=== PATIENT | male | born 1985 | race Hispanic/Latino ===

== ENCOUNTER 2018-11-06 19:00 | Emergency (ER) | payer SELFPAY ==
[2018-11-06] MEDS ORDERED: Lidocaine 1% Inj (20ml) IJ STA (19:58)
[2018-11-06] MEDS ORDERED: Morphine 4 MG/ML VIAL IVP ONE (19:58)
[2018-11-06] MEDS ORDERED: Lidocaine 1% Inj (20ml) ONE (20:02)
[2018-11-06 20:16] LABS: BASO % 0.4 % (0.0-2.0); EOS # 0.5 K/uL (0.0-0.7); EOS % 4.7 % (0.0-4.0); HEMOGLOBIN 16.5 g/dL (12.0-18.0); LYMPH # 3.6 K/uL (1.0-4.3); LYMPH % 35.6 % (20.0-40.0); MEAN CELL VOLUME 94.8 fl (80.0-94.0); MEAN CORPUSCULAR HEMOGLOBIN 32.5 pg (27.0-31.0); MEAN CORPUSCULAR HGB CONC 34.2 g/dL (33.0-37.0); MEAN PLATELET VOLUME 8.7 fl (7.2-11.7); MONO # 0.9 K/uL (0.0-0.8); MONO % 8.7 % (0.0-10.0); NEUT # 5.1 K/uL (1.8-7.0); NEUT % 50.6 % (50.0-75.0); NRBC % 0.1 % (0.0-0.0); RBC 5.09 Mil/uL (4.40-5.90); RED CELL DISTRIBUTION WIDTH 13.6 % (11.5-14.5)
[2018-11-06 20:34] LABS: BLOOD UREA NITROGEN 17 mg/dl (9-20); GFR NON-AFRICAN AMERICAN > 60
[2018-11-06] MEDS ORDERED: Bupivacaine 0.5% 50 ML IJ ONE (20:43)
--- NOTE | 2018-11-06 21:19 | ED PDOC ---
Upper Extremity Pain/Injury Time Seen by Provider: 11/06/18 19:50 Chief Complaint (Nursing): Finger,Hand,&Wrist Chief Complaint (Provider): Finger,Hand,&Wrist History Per: Patient History/Exam Limitations: no limitations Current Symptoms Are (Timing): Still Present Quality: "Pain" Additional Complaint(s): 32 year old male presents to the ED with an injury to the left first digit. 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 While slicing limes, he accidentally sliced off the tip of his left thumb. Patient states the bleeding was severe. In an attempt to stop it, he stuck his thumb in salt, wrapped it in paper towels, duct tape and a rubber band. Patient reports the blood was "squirting" out of his thumb and he feels as though he lost a lot of blood. PMD: Merrick Herrmann Past Medical History Reviewed: Historical Data, Nursing Documentation, Vital Signs Vital Signs: Last Vital Signs Temp 98.0 F 11/06/18 19:15 Pulse 85 11/06/18 19:15 Resp 16 11/06/18 19:15 BP 154/101 H 11/06/18 19:15 Pulse Ox 100 11/06/18 19:15 Primary Care Provider: Merrick Herrmann - Medical History PMH: Anxiety, Depression Denies: HIV, HTN, Seizures, Sexually Transmitted Disease - Surgical History Surgical History: No Surg Hx - Family History Family History: States: Unknown Family Hx - Immunization History Hx Tetanus Toxoid Vaccination: No Hx Influenza Vaccination: No Hx Pneumococcal Vaccination: No - Home Medications Home Medications: Ambulatory Orders Medication Instructions Recorded Azithromycin 250 mg PO DAILY #6 tab 06/11/18 Benzonatate [Tessalon Perles] 200 mg PO TID PRN #15 sgl 06/11/18 Ibuprofen [Motrin] 600 mg PO Q6 #30 tab 06/11/18 Cephalexin [Keflex] 500 mg PO Q6 #40 capsule 11/06/18 Oxycodone HCl/Acetaminophen 1 each PO Q6 #12 tablet 11/06/18 [Percocet 10-325 mg Tablet] - Allergies Allergies/Adverse Reactions: Allergies Allergy/AdvReac Type Severity Reaction Status Date / Time guaifenesin [From Robitussin] Allergy RASH Verified 11/06/18 19:14 shellfish derived Allergy RASH Verified 11/06/18 19:14 Review of Systems ROS Statement: Except As Marked, All Systems Reviewed And Found Negative Musculoskeletal: Positive for: Hand Pain (tip of left thumb was sliced off) Physical Exam - Reviewed Nursing Documentation Reviewed: Yes Vital Signs Reviewed: Yes - Physical Exam Appears: Positive for: Uncomfortable Head Exam: Positive for: ATRAUMATIC, NORMOCEPHALIC Skin: Positive for: Normal Color, Warm, Dry Eye Exam: Positive for: EOMI, Normal appearance, PERRL Extremity: Positive for: Normal ROM (full ROM at DIP of left first digit), Other (distal tip of finger exposed; no visible bone. 2 visible pulsatile sources of bleeding. ) - Laboratory Results Result Diagrams: 11/07/18 02:11 11/07/18 02:11 - ECG O2 Sat by Pulse Oximetry: 100 (RA) Pulse Ox Interpretation: Normal Medical Decision Making Medical Decision Makin:50 MDM: avulsion of the distal left thumb Patient to be seen by Dr. Buchanan for the tip of his left thumb to be replaced. Finger redressed with xerofrom and gauze. 21:32 Skin graft placed and closed by Dr. Buchanan and surgical residents. 22:08 Patient was to be discharged. However, patient's called stating that he has been expressing the desire to kill himself all day. When asked about psychiatric issues, he states that he would like to kill himself. Crisis evaluated and 1:1 observation orders placed. Scribe Attestation: Documented by Isidra Aragon, acting as a scribe for Erika Malcolm MD. Provider Scribe Attestation: All medical record entries made by the Scribe were at my direction and personally dictated by me. I have reviewed the chart and agree that the record accurately reflects my personal performance of the history, physical exam, medical decision making, and the department course for this patient. I have also personally directed, reviewed, and agree with the discharge instructions and disposition. Disposition - Clinical Impression Clinical Impression: Laceration of thumb, Depression with suicidal ideation - Patient ED Disposition Is Patient to be Admitted: No - Disposition Disposition: Transfer of Care Disposition Time: 23:00 (pending crisis evaluation) Condition: STABLE Prescriptions: Cephalexin [Keflex] 500 mg PO Q6 #40 capsule Oxycodone HCl/Acetaminophen [Percocet 10-325 mg Tablet] 1 each PO Q6 #12 tablet Forms: [employer] (Bruneian) Print Language: PERUVIAN
--- NOTE | 2018-11-06 23:31 | ED PDOC ---
- Laboratory Results Result Diagrams: 11/07/18 02:11 11/07/18 02:11 - ECG O2 Sat by Pulse Oximetry: 100 (RA) Pulse Ox Interpretation: Normal Medical Decision Making Medical Decision Makin Patient endorsed by Dr. Malcolm, pending crisis evaluation and 1:1 Observation. 0108 Pending [facility] [place]. 0700 Patient resting comfortably in ER. Patient signed out to Dr. Thomas, pending [facility] [place]. Scribe Attestation: Documented by Shanika Trammell acting as a scribe for Miguel Grayson MD. Provider Scribe Attestation: All medical record entries made by the Scribe were at my direction and personally dictated by me. I have reviewed the chart and agree that the record accurately reflects my personal performance of the history, physical exam, medical decision making, and the department course for this patient. I have also personally directed, reviewed, and agree with the discharge instructions and disposition. Disposition - Clinical Impression Clinical Impression: Laceration of thumb - Disposition Referrals: Marciano Buchanan MD [Medical Doctor] - Condition: STABLE Prescriptions: Cephalexin [Keflex] 500 mg PO Q6 #40 capsule Oxycodone HCl/Acetaminophen [Percocet 10-325 mg Tablet] 1 each PO Q6 #12 tablet Forms: [employer] (Korean), [facility] ED School/Work Excuse Print Language: MALAY
[2018-11-07 02:23] LABS: BASO % 0.5 % (0.0-2.0); EOS # 0.4 K/uL (0.0-0.7); EOS % 3.5 % (0.0-4.0); HEMOGLOBIN 15.5 g/dL (12.0-18.0); LYMPH # 3.8 K/uL (1.0-4.3); MEAN CELL VOLUME 95.1 fl (80.0-94.0); MEAN CORPUSCULAR HEMOGLOBIN 32.7 pg (27.0-31.0); MEAN CORPUSCULAR HGB CONC 34.4 g/dL (33.0-37.0); MEAN PLATELET VOLUME 8.6 fl (7.2-11.7); MONO # 0.9 K/uL (0.0-0.8); MONO % 8.9 % (0.0-10.0); NEUT # 5.4 K/uL (1.8-7.0); NEUT % 51.1 % (50.0-75.0); RBC 4.75 Mil/uL (4.40-5.90); RED CELL DISTRIBUTION WIDTH 13.7 % (11.5-14.5); WHITE BLOOD COUNT 10.5 K/uL (4.8-10.8)
[2018-11-07 02:33] LABS: ACETAMINOPHEN < 10.0 ug/ml (10.0-30.0); SALICYLATE < 1.0 mg/dl
[2018-11-07 02:35] LABS: BLOOD UREA NITROGEN 16 mg/dl (9-20); CALCIUM 9.4 mg/dL (8.4-10.2); GFR NON-AFRICAN AMERICAN > 60
[2018-11-07] MEDS ORDERED: Oxycodone/Acetaminophen 5/325 mg Tab PO ONE ×2 (03:37→08:03)
[2018-11-07] MEDS ORDERED: Oxycodone/Acetaminophen 5/325 mg Tab ONE ×2 (03:41→08:07)
[2018-11-07 06:48] LABS: URINE BILIRUBIN NEGATIVE (NEGATIVE); URINE BLOOD NEGATIVE (NEGATIVE); URINE CLARITY CLEAR (Clear); URINE COLOR YELLOW (YELLOW); URINE GLUCOSE (UA) NEG (NEGATIVE); URINE LEUKOCYTE ESTERASE NEG Leu/uL (Negative); URINE PROTEIN NEGATIVE (NEGATIVE); URINE UROBILINOGEN 0.2-1.0 mg/dL (0.2-1.0)
[2018-11-07 07:07] LABS: BARBITURATES, UR NEGATIVE (NEGATIVE); BENZODIAZEPINES, UR NEGATIVE (NEGATIVE); OPIATES, UR POSITIVE (NEGATIVE); PHENCYCLIDINE, UR NEGATIVE (NEGATIVE)
--- NOTE | 2018-11-07 07:22 | ED PDOC ---
- Laboratory Results Result Diagrams: 11/07/18 02:11 11/07/18 02:11 Lab Results: Urine Color Yellow (YELLOW) 11/07/18 06:33 Urine Clarity Clear (Clear) 11/07/18 06:33 Urine pH 5.0 (5.0-8.0) 11/07/18 06:33 Ur Specific [place] 1.027 (1.003-1.030) 11/07/18 06:33 Urine Protein Negative mg/dL (NEGATIVE) 11/07/18 06:33 Urine Glucose (UA) Neg mg/dL (NEGATIVE) 11/07/18 06:33 Urine Ketones Trace mg/dL (NEGATIVE) 11/07/18 06:33 Urine Blood Negative (NEGATIVE) 11/07/18 06:33 Urine Nitrate Negative (NEGATIVE) 11/07/18 06:33 Urine Bilirubin Negative (NEGATIVE) 11/07/18 06:33 Urine Urobilinogen 0.2-1.0 mg/dL (0.2-1.0) 11/07/18 06:33 Ur Leukocyte Esterase Neg Saeid/uL (Negative) 11/07/18 06:33 Urine RBC (Auto) 3 /hpf (0-3) 11/07/18 06:33 Urine Microscopic WBC 2 /hpf (0-5) 11/07/18 06:33 - ECG O2 Sat by Pulse Oximetry: 99 (RA) Pulse Ox Interpretation: Normal - Progress ED Course And Treament: 1441: Stable. Pending [facility] bed. Has been accepted. Dr. Singh to take over care. Pt. vitals maintained. Pt. with finger lac. To be put on antibiotics and laceration fu with Dr. Buchanan. Medical Decision Making Medical Decision Making: Time: 0700 -- Patient endorsed to me by Dr. Grayson, pending [facility] evaluation. Scribe Attestation: Documented by Danielito Tirado, acting as a scrshadi Thomas MD. Provider Scribe Attestation: All medical record entries made by the Scribe were at my direction and pe rsonally dictated by me. I have reviewed the chart and agree that the record accurately reflects my personal performance of the history, physical exam, medical decision making, and the department course for this patient. I have also personally directed, reviewed, and agree with the discharge instructions and disposition. Disposition - Clinical Impression Clinical Impression: Laceration of thumb, Depression with suicidal ideation - POA Present On Arrival: Falls Or Trauma - Disposition Disposition: Transfer of Care Disposition Time: 14:45 Condition: STABLE Prescriptions: Cephalexin [Keflex] 500 mg PO Q6 #40 capsule Oxycodone HCl/Acetaminophen [Percocet 10-325 mg Tablet] 1 each PO Q6 #12 tablet Print Language: SWEDISH
--- NOTE | 2018-11-07 10:51 | CP.PCM.CON ---
History of Present Illness - History of Present Illness History of Present Illness: Psychiatry consult note CC: Depression HPI: 32 yo male w/ h/o depression and prior psychiatric admission, admitted s/p accidentally cutting his finger, with reports of worsening depression. Collateral history obtained from patient's , stated that the patient has been expressing suicidal ideation. Patient is now denying suicidal ideation and does not want inpatient psychiatric admission. A + O x 4. Denies AH/VH/HI/paranoia. From ER note: CW (MIKE) spoke to pt's ex-, Alize Saldaña- [phone] via phone as pt had contacted the ED stating that she had concerns about pt's safety. As CW gathered more information regarding pt, pt's ex- reported pt has been expressing the desire to kill himself all day long. She reported that pt called him telling her that he was by the bridge 2 or 3 days ago stating that he was going to take his life; she then reported that she convinced him to not end his life, as his children need him. Mrs. Saldaña stated that despite their "marital issues;" she still wants pt to be safe and get professional help so that he can cope with his life stressors in a healthier way. Pt's ex- stated that she is aware that pt has had 1 suicidal attempt back in 2013, where as he was admitted for an "overdose." Mrs. Saldaña believes that pt would benefit from being admitted psychiatrically. 23:05- CW (MIKE) also spoke to pt's mother (Mrs. Lara Berrios)- [phone], whom reported that she has concerns about her son's mental health as he has a history of depression and he does not seem to be handling his divorce very well. Pt's mother also stated that she believes pt should be admitted to improve his mood and ensure his safety. Impression: 32 yo male w/ worsening depression and recent suicidal threats. -Screen for involuntary psychiatric admission Past Patient History - Infectious Disease Hx of Infectious Diseases: None - Past Social History Smoking Status: Heavy Smoker > 10 Cigarettes Daily - CARDIAC Hx Cardiac Disorders: No Hx Hypertension: No - PULMONARY Hx Tuberculosis: No - NEUROLOGICAL HX Cerebrovascular Accident: No Hx Seizures: No - HEMATOLOGICAL/ONCOLOGICAL Hx Cancer: No Hx Human Immunodeficiency Virus (HIV): No - MUSCULOSKELETAL/RHEUMATOLOGICAL Hx Falls: No - GENITOURINARY/GYNECOLOGICAL Hx Sexually Transmitted Disorders: No - PSYCHIATRIC Hx Anxiety: Yes Hx Depression: Yes - ANESTHESIA Hx Anesthesia: Yes Meds Home Medications: Home Medication List Medication Instructions Recorded Confirmed Type Cephalexin [Keflex] 500 mg PO Q6 #40 capsule 11/06/18 Rx Oxycodone HCl/Acetaminophen 1 each PO Q6 #12 tablet 11/06/18 Rx [Percocet 10-325 mg Tablet] Allergies/Adverse Reactions: Allergies Allergy/AdvReac Type Severity Reaction Status Date / Time guaifenesin [From Robitussin] Allergy RASH Verified 11/06/18 19:14 shellfish derived Allergy RASH Verified 11/06/18 19:14 Results - Vital Signs Recent Vital Signs: Last Vital Signs Temp 98.0 F 11/07/18 07:16 Pulse 52 L 11/07/18 07:16 Resp 18 11/07/18 07:16 BP 113/73 11/07/18 07:16 Pulse Ox 99 11/07/18 07:22 - Labs Result Diagrams: 11/07/18 02:11 11/07/18 02:11 Labs: Laboratory Results - last 24 hr 11/06/18 11/06/18 11/07/18 20:05 20:05 02:11 WBC 10.0 RBC 5.09 Hgb 16.5 Hct 48.3 MCV 94.8 H MCH 32.5 H MCHC 34.2 RDW 13.6 Plt Count 316 MPV 8.7 Neut % (Auto) 50.6 Lymph % (Auto) 35.6 [place] % (Auto) 8.7 Eos % (Auto) 4.7 H Baso % (Auto) 0.4 Neut # (Auto) 5.1 Lymph # (Auto) 3.6 [place] # (Auto) 0.9 H Eos # (Auto) 0.5 Baso # (Auto) 0.0 Sodium 137 Potassium 3.8 Chloride 100 Carbon Dioxide 27 Anion Gap 14 BUN 17 Creatinine 0.8 Est GFR ( Amer) > 60 Est GFR (Non-Af Amer) > 60 Random Glucose 90 Calcium 10.0 Urine Color Urine Clarity Urine pH Ur Specific [place] Urine Protein Urine Glucose (UA) Urine Ketones Urine Blood Urine Nitrate Urine Bilirubin Urine Urobilinogen Ur Leukocyte Esterase Urine RBC (Auto) Urine Microscopic WBC Salicylates < 1.0 Urine Opiates Screen Urine Methadone Screen Acetaminophen < 10.0 L Ur Barbiturates Screen Ur Phencyclidine Scrn Ur Amphetamines Screen U Benzodiazepines Scrn U Oth Cocaine Metabols U Cannabinoids Screen Alcohol, Quantitative 11/07/18 11/07/18 11/07/18 02:11 02:11 06:33 WBC 10.5 RBC 4.75 Hgb 15.5 Hct 45.2 MCV 95.1 H MCH 32.7 H MCHC 34.4 RDW 13.7 Plt Count 263 MPV 8.6 Neut % (Auto) 51.1 Lymph % (Auto) 36.0 [place] % (Auto) 8.9 Eos % (Auto) 3.5 Baso % (Auto) 0.5 Neut # (Auto) 5.4 Lymph # (Auto) 3.8 [place] # (Auto) 0.9 H Eos # (Auto) 0.4 Baso # (Auto) 0.0 Sodium 137 Potassium 4.1 Chloride 102 Carbon Dioxide 25 Anion Gap 14 BUN 16 Creatinine 0.8 Est GFR ( Amer) > 60 Est GFR (Non-Af Amer) > 60 Random Glucose 92 Calcium 9.4 Urine Color Urine Clarity Urine pH Ur Specific [place] Urine Protein Urine Glucose (UA) Urine Ketones Urine Blood Urine Nitrate Urine Bilirubin Urine Urobilinogen Ur Leukocyte Esterase Urine RBC (Auto) Urine Microscopic WBC Salicylates Urine Opiates Screen Positive H Urine Methadone Screen Negative Acetaminophen Ur Barbiturates Screen Negative Ur Phencyclidine Scrn Negative Ur Amphetamines Screen Negative U Benzodiazepines Scrn Negative U Oth Cocaine Metabols Positive H U Cannabinoids Screen Positive H Alcohol, Quantitative < 10 11/07/18 06:33 WBC RBC Hgb Hct MCV MCH MCHC RDW Plt Count MPV Neut % (Auto) Lymph % (Auto) [place] % (Auto) Eos % (Auto) Baso % (Auto) Neut # (Auto) Lymph # (Auto) [place] # (Auto) Eos # (Auto) Baso # (Auto) Sodium Potassium Chloride Carbon Dioxide Anion Gap BUN Creatinine Est GFR ( Amer) Est GFR (Non-Af Amer) Random Glucose Calcium Urine Color Yellow Urine Clarity Clear Urine pH 5.0 Ur Specific [place] 1.027 Urine Protein Negative Urine Glucose (UA) Neg Urine Ketones Trace Urine Blood Negative Urine Nitrate Negative Urine Bilirubin Negative Urine Urobilinogen 0.2-1.0 Ur Leukocyte Esterase Neg Urine RBC (Auto) 3 Urine Microscopic WBC 2 Salicylates Urine Opiates Screen Urine Methadone Screen Acetaminophen Ur Barbiturates Screen Ur Phencyclidine Scrn Ur Amphetamines Screen U Benzodiazepines Scrn U Oth Cocaine Metabols U Cannabinoids Screen Alcohol, Quantitative
--- NOTE | 2018-11-07 10:59 | RAD ---
Date of service: 11/07/2018 HISTORY: med clearance COMPARISON: 06/07/2010 TECHNIQUE: Chest PA and lateral views. Two views. FINDINGS: LUNGS: No active pulmonary disease. PLEURA: No significant pleural effusion identified. No pneumothorax apparent. CARDIOVASCULAR: No aortic atherosclerotic calcification present. Normal cardiac size. No pulmonary vascular congestion. OSSEOUS STRUCTURES: No significant abnormalities. VISUALIZED UPPER ABDOMEN: Normal. OTHER FINDINGS: None. IMPRESSION: No active disease.
--- NOTE | 2018-11-07 15:01 | ED PDOC ---
- Laboratory Results Result Diagrams: 11/07/18 02:11 11/07/18 02:11 Lab Results: Urine Color Yellow (YELLOW) 11/07/18 06:33 Urine Clarity Clear (Clear) 11/07/18 06:33 Urine pH 5.0 (5.0-8.0) 11/07/18 06:33 Ur Specific [place] 1.027 (1.003-1.030) 11/07/18 06:33 Urine Protein Negative mg/dL (NEGATIVE) 11/07/18 06:33 Urine Glucose (UA) Neg mg/dL (NEGATIVE) 11/07/18 06:33 Urine Ketones Trace mg/dL (NEGATIVE) 11/07/18 06:33 Urine Blood Negative (NEGATIVE) 11/07/18 06:33 Urine Nitrate Negative (NEGATIVE) 11/07/18 06:33 Urine Bilirubin Negative (NEGATIVE) 11/07/18 06:33 Urine Urobilinogen 0.2-1.0 mg/dL (0.2-1.0) 11/07/18 06:33 Ur Leukocyte Esterase Neg Saeid/uL (Negative) 11/07/18 06:33 Urine RBC (Auto) 3 /hpf (0-3) 11/07/18 06:33 Urine Microscopic WBC 2 /hpf (0-5) 11/07/18 06:33 - ECG O2 Sat by Pulse Oximetry: 99 (RA) Pulse Ox Interpretation: Normal Medical Decision Making Medical Decision Making: Time: 1500 -- Patient endorsed to me by Dr. Thomas, pending [facility] bed availability. Time: 1534 -- On re-evaluation, patient is complaining of finger pain. Motrin ordered. Time: 1900 -- Pt stable. Time: 2300 -- Pt stable. time: [address] Grayson. Pending [facility] bed. Stable at this time. Scribe Attestation: Documented by Danielito Tirado, acting as a scribe forMelissa Singh, MD. Provider Scribe Attestation: All medical record entries made by the Scribe were at my direction and personally dictated by me. I have reviewed the chart and agree that the record accurately reflects my personal performance of the history, physical exam, medical decision making, and the department course for this patient. I have also personally directed, reviewed, and agree with the discharge instructions and disposition. Disposition - Clinical Impression Clinical Impression: Laceration of thumb, Depression with suicidal ideation - POA Present On Arrival: None - Disposition Disposition: Transfer of Care Disposition Time: 00:00 Condition: STABLE Prescriptions: Cephalexin [Keflex] 500 mg PO Q6 #40 capsule Oxycodone HCl/Acetaminophen [Percocet 10-325 mg Tablet] 1 each PO Q6 #12 tablet Print Language: UZBEK
--- NOTE | 2018-11-07 17:32 | CARD ---
APPROVED REPORT Date of service: 11/07/2018 EKG Measurement Heart [id number] <Conclusion> Sinus bradycardia Otherwise normal ECG
[2018-11-07] MEDS ORDERED: Oxycodone/Acetaminophen 5/325 mg Tab PO STA (23:45)
--- NOTE | 2018-11-08 03:52 | ED PDOC ---
- Laboratory Results Result Diagrams: 11/07/18 02:11 11/07/18 02:11 Lab Results: Urine Color Yellow (YELLOW) 11/07/18 06:33 Urine Clarity Clear (Clear) 11/07/18 06:33 Urine pH 5.0 (5.0-8.0) 11/07/18 06:33 Ur Specific [place] 1.027 (1.003-1.030) 11/07/18 06:33 Urine Protein Negative mg/dL (NEGATIVE) 11/07/18 06:33 Urine Glucose (UA) Neg mg/dL (NEGATIVE) 11/07/18 06:33 Urine Ketones Trace mg/dL (NEGATIVE) 11/07/18 06:33 Urine Blood Negative (NEGATIVE) 11/07/18 06:33 Urine Nitrate Negative (NEGATIVE) 11/07/18 06:33 Urine Bilirubin Negative (NEGATIVE) 11/07/18 06:33 Urine Urobilinogen 0.2-1.0 mg/dL (0.2-1.0) 11/07/18 06:33 Ur Leukocyte Esterase Neg Saeid/uL (Negative) 11/07/18 06:33 Urine RBC (Auto) 3 /hpf (0-3) 11/07/18 06:33 Urine Microscopic WBC 2 /hpf (0-5) 11/07/18 06:33 - ECG O2 Sat by Pulse Oximetry: 98 Medical Decision Making Medical Decision Making: Time: 00:00 Patient endorsed to provider from Chiqui Singh MD. [place] [facility] P[place] bed availability in psych department. Scribe Attestation: Documented by Darryl Rivas, acting as a scribe Brown Grayson MD. Provider Scribe Attestation: All medical record entries made by the Scribe were at my direction and personally dictated by me. I have reviewed the chart and agree that the record accurately reflects my personal performance of the history, physical exam, medical decision making, and the department course for this patient. I have also personally directed, reviewed, and agree with the discharge instructions and disposition. Disposition - Clinical Impression Clinical Impression: Laceration of thumb, Depression with suicidal ideation - POA Present On Arrival: None - Disposition Disposition: Other [place] Condition: STABLE Prescriptions: Cephalexin [Keflex] 500 mg PO Q6 #40 capsule Oxycodone HCl/Acetaminophen [Percocet 10-325 mg Tablet] 1 each PO Q6 #12 tablet Forms: [employer] (Lao) Print Language: ANGOLAN
[2018-11-08 06:53] VITALS: TEMP 98.2
--- NOTE | 2018-11-08 11:27 | CP.PCM.CON ---
History of Present Illness - History of Present Illness History of Present Illness: Psychiatry consult follow-up note CC: Depression HPI: 32 yo male w/ h/o depression and prior psychiatric admission, admitted s/p accidentally cutting his finger, with reports of worsening depression and suicidal threats. Patient [place] [facility] [place] found to meet criteria for involuntary commitment. From ER note: CW (MIKE) spoke to pt's ex-, Alize Saldaña- [phone] via phone as pt had contacted the ED stating that she had concerns about pt's safety. As CW gathered more information regarding pt, pt's ex- reported pt has been expressing the desire to kill himself all day long. She reported that pt called him telling her [place] 3 days ago stating that he was going to take his life; she then reported that she convinced him to not end his life, as his children need him. Mrs. Saldaña stated that despite their "marital issues;" she still wants pt to be safe and get professional help so that he can cope with his life stressors in a healthier way. Pt's ex- stated that she is aware that pt has had 1 suicidal attempt back in 2013, where as he was admitted for an "overdose." Mrs. Saldaña believes that pt would benefit from being admitted psychiatrically. Impression: 32 yo male w/ worsening depression and recent suicidal threats; screened and accepted for involuntary psychiatric admission. -[place] to [facility] [place]PC completed by board writer Past Patient History - Infectious Disease Hx of Infectious Diseases: None - Past Social History Smoking Status: Heavy Smoker > 10 Cigarettes Daily - CARDIAC Hx Cardiac Disorders: No Hx Hypertension: No - PULMONARY Hx Tuberculosis: No - NEUROLOGICAL HX Cerebrovascular Accident: No Hx Seizures: No - HEMATOLOGICAL/ONCOLOGICAL Hx Cancer: No Hx Human Immunodeficiency Virus (HIV): No - MUSCULOSKELETAL/RHEUMATOLOGICAL Hx Falls: No - GENITOURINARY/GYNECOLOGICAL Hx Sexually Transmitted Disorders: No - PSYCHIATRIC Hx Anxiety: Yes Hx Depression: Yes - ANESTHESIA Hx Anesthesia: Yes Meds Home Medications: Home Medication List Medication Instructions Recorded Confirmed Type Cephalexin [Keflex] 500 mg PO Q6 #40 capsule 11/06/18 Rx Oxycodone HCl/Acetaminophen 1 each PO Q6 #12 tablet 11/06/18 Rx [Percocet 10-325 mg Tablet] Allergies/Adverse Reactions: Allergies Allergy/AdvReac Type Severity Reaction Status Date / Time guaifenesin [From Shawn] Allergy RASH Verified 11/06/18 19:14 shellfish derived Allergy RASH Verified 11/06/18 19:14 - Medications Medications: Current Medications Cephalexin Monohydrate (Keflex) 500 mg PO Q6 MERRY; Protocol Stop: 11/14/18 16:01 Last Admin: 11/08/18 10:31 Dose: 500 mg Results - Vital Signs Recent Vital Signs: Last Vital Signs Temp 98.2 F 11/08/18 06:53 Pulse 70 11/08/18 06:53 Resp 15 11/08/18 06:53 BP 114/67 11/08/18 06:53 Pulse Ox 100 11/08/18 06:53 - Labs Result Diagrams: 11/07/18 02:11 11/07/18 02:11
--- NOTE | 2018-11-08 11:51 | ED PDOC ---
- Laboratory Results Result Diagrams: 11/07/18 02:11 11/07/18 02:11 Lab Results: Urine Color Yellow (YELLOW) 11/07/18 06:33 Urine Clarity Clear (Clear) 11/07/18 06:33 Urine pH 5.0 (5.0-8.0) 11/07/18 06:33 Ur Specific [place] 1.027 (1.003-1.030) 11/07/18 06:33 Urine Protein Negative mg/dL (NEGATIVE) 11/07/18 06:33 Urine Glucose (UA) Neg mg/dL (NEGATIVE) 11/07/18 06:33 Urine Ketones Trace mg/dL (NEGATIVE) 11/07/18 06:33 Urine Blood Negative (NEGATIVE) 11/07/18 06:33 Urine Nitrate Negative (NEGATIVE) 11/07/18 06:33 Urine Bilirubin Negative (NEGATIVE) 11/07/18 06:33 Urine Urobilinogen 0.2-1.0 mg/dL (0.2-1.0) 11/07/18 06:33 Ur Leukocyte Esterase Neg Saeid/uL (Negative) 11/07/18 06:33 Urine RBC (Auto) 3 /hpf (0-3) 11/07/18 06:33 Urine Microscopic WBC 2 /hpf (0-5) 11/07/18 06:33 - ECG O2 Sat by Pulse Oximetry: 100 - Progress ED Course And Treament: 7000: Took over care from Dr. Grayson. [facility] bed. 1000: Motrin if needed for pain. 1150: Stable. Pt. medically stable for psychiatric admission. Disposition - Clinical Impression Clinical Impression: Laceration of thumb, Depression with suicidal ideation - Disposition Condition: STABLE Prescriptions: Cephalexin [Keflex] 500 mg PO Q6 #40 capsule Oxycodone HCl/Acetaminophen [Percocet 10-325 mg Tablet] 1 each PO Q6 #12 tablet Forms: [employer] (Yemeni) Print Language: TOGOLESE
[2018-11-08 12:53] VITALS: BP 111/52; PULSE 56; RESP 18
[2018-11-10 11:00] VITALS: O2SAT 99
== END 2018-11-08 13:50 | disposition short-term general hospital (02) ==
LOC: H.ER 19:00
DX: S61.012A Laceration without foreign body of left thumb without damage to nail, initial encounter (principal); W26.0XXA Contact with knife, initial encounter; Y93.G1 Activity, food preparation and clean up; Y92.511 Restaurant or cafe as the place of occurrence of the external cause; Y99.0 Civilian activity done for income or pay; E11.9 Type 2 diabetes mellitus without complications; F17.210 Nicotine dependence, cigarettes, uncomplicated; Z86.59 Personal history of other mental and behavioral disorders
CPT/HCPCS: 80048; 81003; 85025; 96374; 99285; G0480; J2270

== ENCOUNTER 2018-11-14 21:08 | Emergency (ER) | payer OTHER ==
[2018-11-14 22:00] VITALS: RESP 18
[2018-11-14 22:47] LABS: BASO # 0.1 K/uL (0.0-0.2); BASO % 0.7 % (0.0-2.0); EOS # 0.6 K/uL (0.0-0.7); EOS % 5.8 % (0.0-4.0); LYMPH # 3.2 K/uL (1.0-4.3); LYMPH % 31.8 % (20.0-40.0); MEAN CELL VOLUME 94.1 fl (80.0-94.0); MEAN CORPUSCULAR HEMOGLOBIN 32.8 pg (27.0-31.0); MEAN CORPUSCULAR HGB CONC 34.9 g/dL (33.0-37.0); MEAN PLATELET VOLUME 8.8 fl (7.2-11.7); MONO # 0.9 K/uL (0.0-0.8); MONO % 8.6 % (0.0-10.0); NEUT # 5.4 K/uL (1.8-7.0); NEUT % 53.1 % (50.0-75.0); RBC 4.58 Mil/uL (4.40-5.90); RED CELL DISTRIBUTION WIDTH 13.3 % (11.5-14.5); WHITE BLOOD COUNT 10.1 K/uL (4.8-10.8)
[2018-11-14 23:01] LABS: ALB/GLOB RATIO 1.6 (1.0-2.1); ALBUMIN 4.5 g/dL (3.5-5.0); ALT/SGPT 36 U/L (21-72); AST/SGOT 32 U/L (17-59); BLOOD UREA NITROGEN 18 mg/dl (9-20); CALCIUM 9.3 mg/dL (8.4-10.2); GFR NON-AFRICAN AMERICAN > 60
--- NOTE | 2018-11-14 23:05 | ED PDOC ---
HPI: Chest Pain Time Seen by Provider: 11/14/18 22:05 Chief Complaint (Nursing): Chest Pain Chief Complaint (Provider): chest pain History Per: Patient History/Exam Limitations: no limitations Additional Complaint(s): chest pain pressure like at 1pm "like elephant sitting on my chest" was lying on ground because of pain but it improved. felt "weird" all day. pain was associated with LEFT shoulder pain, shortness of breathing, tingling in fingers. started to return just prior to arrival restarted on wellbutrin this past week after involuntary [place] [facility] [place] also reports recently started smoking again. denies drug or alcohol use has had one panic attack in the past 10 years ago and did not feel like this. admits to increased recent stress with involuntary psych admission and open D[facility] case with his children Also had recent LEFT thumb graft after laceration sustained at work. Was supposed to followup with Dr Aviles yesterday but was unable too. Tingling to digit started yesterday. Concerned because stitches are through nail which is growing. Past Medical History Reviewed: Historical Data, Nursing Documentation, Vital Signs Vital Signs: Last Vital Signs Temp 98.1 F 11/14/18 21:59 Pulse 70 11/14/18 21:59 Resp 18 11/14/18 21:59 BP 118/70 11/14/18 21:59 Pulse Ox 99 11/14/18 21:59 Primary Care Provider: Merrick Herrmann - Medical History PMH: Anxiety, Depression, Hypercholesterolemia Denies: Diabetes, Hepatitis, HIV, HTN, Seizures, Sexually Transmitted Disease - Family History Family History: States: Unknown Family Hx - Social History Current smoker - smoking cessation education provided: Yes Drugs: Denies - Immunization History Hx Tetanus Toxoid Vaccination: No Hx Influenza Vaccination: No Hx Pneumococcal Vaccination: No - Home Medications Home Medications: Ambulatory Orders Medication Instructions Recorded Azithromycin 250 mg PO DAILY #6 tab 06/11/18 Benzonatate [Tessalon Perles] 200 mg PO TID PRN #15 sgl 06/11/18 Ibuprofen [Motrin] 600 mg PO Q6 #30 tab 06/11/18 Oxycodone HCl/Acetaminophen 1 each PO Q6 #12 tablet 11/06/18 [Percocet 10-325 mg Tablet] Cephalexin [Keflex] 500 mg PO Q6 #40 capsule 11/15/18 - Allergies Allergies/Adverse Reactions: Allergies Allergy/AdvReac Type Severity Reaction Status Date / Time guaifenesin [From Robitussin] Allergy RASH Verified 11/06/18 19:14 shellfish derived Allergy RASH Verified 11/06/18 19:14 WU Risk Score for UA/NSTEMI - WU Risk Score Age > 64: NO 3 or more CAD Risk Factors: NO Known CAD (Stenosis greater than 50%): NO Aspirin use in past 7 days: YES Severe Angina: NO EKG ST changes greater than 0.5mm: NO Positive Cardiac Marker: NO WU Score: 1 Risk %: 5% Review of Systems ROS Statement: Except As Marked, All Systems Reviewed And Found Negative (and as per HPI) Cardiovascular: Positive for: Chest Pain, Light Headedness Respiratory: Positive for: Shortness of Breath Skin: Positive for: Lesions Neurological: Positive for: Dizziness Physical Exam - Reviewed Nursing Documentation Reviewed: Yes Vital Signs Reviewed: Yes - Physical Exam Appears: Positive for: Non-toxic, No Acute Distress Head Exam: Positive for: ATRAUMATIC, NORMOCEPHALIC Skin: Positive for: Warm, Dry Eye Exam: Positive for: EOMI, PERRL Neck: Positive for: Painless ROM, Supple Cardiovascular/Chest: Positive for: Regular Rate, Rhythm. Negative for: Murmur Respiratory: Positive for: Normal Breath Sounds. Negative for: Respiratory Distress Gastrointestinal/Abdominal: Positive for: Soft. Negative for: Tenderness Back: Positive for: Normal Inspection. Negative for: Decreased ROM Extremity: Positive for: Other (LEFT thumb: sutured bolster dressing to finger tip). Negative for: Deformity Lymphatic: Negative for: Adenopathy Neurological/Psych: Positive for: Awake, Alert. Negative for: Motor/Sensory Deficits - Laboratory Results Result Diagrams: 11/14/18 22:40 11/14/18 22:40 - ECG O2 Sat by Pulse Oximetry: 99 - Progress ED Course And Treament: DANY Aviles. residential solar consultant to evaluate for possible suture removal. 2300 Labs unremarkable. Evaluated by surgery resident Dr Zaragoza who removed sutur es and redressed wound. Mandatory followup at Dr Aviles's office for further management. DANY pt findings and plan of care. Disposition - Clinical Impression Clinical Impression: Chest pain - Disposition Referrals: [facility] [Outside] Marciano Aviles MD [Medical Doctor] - Disposition: Routine/Home Disposition Time: 23:00 Condition: STABLE Additional Instructions: YOU MUST FOLLOWUP WITH DR AVILES AT HIS OFFICE FOR FURTHER MANAGEMENT OF YOUR FINGER. Prescriptions: Cephalexin [Keflex] 500 mg PO Q6 #40 capsule Instructions: Chest Pain That Is Not Caused by the Heart (DC), Stress
[2018-11-14 23:54] VITALS: BP 136/86; PULSE 65; TEMP 98
--- NOTE | 2018-11-15 09:46 | RAD ---
Date of service: 11/14/2018 HISTORY: chest pain COMPARISON: Chest radiographs 11/07/2018. TECHNIQUE: Chest PA and lateral views FINDINGS: LUNGS: No active pulmonary disease. PLEURA: No significant pleural effusion identified. No pneumothorax apparent. CARDIOVASCULAR: No aortic atherosclerotic calcification present. Normal cardiac size. No pulmonary vascular congestion. OSSEOUS STRUCTURES: No significant abnormalities. VISUALIZED UPPER ABDOMEN: Normal. OTHER FINDINGS: None. IMPRESSION: No interval acute cardiopulmonary disease appreciated.
--- NOTE | 2018-11-15 12:35 | CARD ---
APPROVED REPORT Date of service: 11/14/2018 EKG Measurement Heart [id number] <Conclusion> Normal sinus rhythm with sinus arrhythmia Normal Electrocardiogram
--- NOTE | 2018-11-15 12:38 | CARD ---
APPROVED REPORT Date of service: 11/14/2018 EKG Measurement Heart [id number] <Conclusion> Normal sinus rhythm with sinus arrhythmia Normal ECG
[2018-11-17 19:32] VITALS: O2SAT 99
== END 2018-11-15 00:12 | disposition home or self-care (01) ==
LOC: H.ER 21:08
DX: R07.9 Chest pain, unspecified (principal); F17.200 Nicotine dependence, unspecified, uncomplicated; E78.00 Pure hypercholesterolemia, unspecified; F43.10 Post-traumatic stress disorder, unspecified; Z86.59 Personal history of other mental and behavioral disorders; Z88.6 Allergy status to analgesic agent; Z48.02 Encounter for removal of sutures